=== PATIENT | male | born 1985 | race African-American/Black ===

== ENCOUNTER 2022-04-14 13:52 | Emergency (ER) | payer OTHER ==
[~2022-04-14] VITALS: Ht 177.8 cm; Wt 68.0 kg
[2022-04-14 13:57] VITALS: BP 114/68
[2022-04-14] MEDS ORDERED: LIDOCAINE 5% PATCH TOP SCH (17:30)
[2022-04-14] MEDS ORDERED: HYDROCODONE/ACETAMINOPHEN 5/325MG TABLET PO ONE (17:30)
[2022-04-14] MEDS ORDERED: KETOROLAC 60MG/2ML VIAL IM ONE (17:30)
[2022-04-14] MEDS ORDERED: LIDO700A15 TP (19:44)
[2022-04-14] MEDS ORDERED: MED4 MT (19:44)
[2022-04-14] MEDS ORDERED: BACL-141 MT (19:44)
[2022-04-14] MEDS ORDERED: IBUP-2029 MT (19:44)
[2022-04-14] MEDS ORDERED: ACET-2708 MT (19:44)
== END 2022-04-14 20:00 | disposition home or self-care (01) ==
LOC: ER 14:32
DX: M51.37 Other intervertebral disc degeneration, lumbosacral region (principal)
CPT/HCPCS: 72131; 96372; 99284; J1885